=== PATIENT | male | born 1960 | race Caucasian/White ===

== ENCOUNTER 2016-09-19 23:23 | Emergency (ER) | payer OTHER ==
[~2016-09-19] VITALS: Ht 180.3 cm; Wt 130.0 kg
[~2016-09-19 23:23] MED LIST: Z.0.NO CURRENT MEDS
[2016-09-19 23:36] VITALS: BP 138/75; PULSE 68; RESP 18; TEMP 97.5; O2SAT 95
[2016-09-20] MEDS ORDERED: CIAL5TAB PO (00:11)
[2016-09-20] MEDS ORDERED: KETOROLAC TROMETHAMINE 60 MG/2 ML (IM) VIAL IM ONE (01:15)
--- NOTE | 2016-09-20 01:50 | RADRPT ---
EXAM DATE/TIME: 09/20/2016 01:12 [place] COMPARISON: No previous studies available for comparison. INDICATIONS : Right elbow pain. MEDICAL HISTORY : Right elbow fracture. SURGICAL HISTORY : Right elbow surgery. ENCOUNTER: Initial ACUITY: 2 days PAIN SCORE: 3/10 LOCATION: Right elbow. FINDINGS: Multiple view examination of the right elbow demonstrates soft tissue swelling posteriorly. Degenerat nicole changes are seen. No fracture or effusion. Calcified density posteriorly.. The osseous structure s are in normal alignment. Bony mineralization is normal. CONCLUSION: 1. Degenerative changes without acute fracture. 2. Calcified density in the posterior soft tissues likely related to old injury. Eric. Placido Tate MD on September 20, 2016 at 1:48 Board Certified Radiologist. This report was verified electronically.
[2016-09-20] MEDS ORDERED: IBUP800T23 PO (01:58)
[2016-09-20] MEDS ORDERED: HYDR-3533 PO (01:58)
--- NOTE | 2016-09-20 02:03 | PD ---
HPI Chief Complaint: Musculoskeletal Complaint Time Seen by Provider: 01:07 Travel History International Travel<30 days: Yes Contact w/Intl Traveler<30days: [place] Country Traveled to: [place] Traveled to known affect area: No History of Present Illness HPI 56-year-old male presents to the emergency department by private transportation for complaint of right elbow pain. Patient is unaware injury but has been lifting weights and was carrying heavy luggage. 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 Patient reports extensive injury to the elbow approximate 4 years ago requiring surgical repair and has done well at the site until the last 2 days and this evening was impairing his ability to sleep comfortably some presents now for further evaluation. Patient rates his pain as 7/10 in intensity. Patient is not diabetic. PFSH Past Medical History Narrative Medical Elbow surgery; nursing notes reviewed Medical History: Denies Significant Hx Cancer: No Diabetes: No Diminished Hearing: No Glaucoma: No Hepatitis: No Hiatal Hernia: No Hypertension: No Thyroid Disease: No Tetanus Vaccination: Unknown Influenza Vaccination: No Past Surgical History Pacemaker: No Social History Alcohol Use: Yes ("OCCASIONALLY") Tobacco Use: No Substance Use: No Allergies-Medications (Allergen,Severity, Reaction): Coded Allergies: No Known Allergies (Verified , 09/20/16) Reported Meds & Prescriptions Reported Meds & Active Scripts Active Reported Cialis (Tadalafil) 5 Mg Tab 5 Mg PO DAILY Do not exceed 1 dose/day. Review of Systems Except as stated in HPI: all other systems reviewed are Neg Physical Exam Narrative GENERAL: Well-developed well-nourished male distress no respiratory distress CARDIOVASCULAR: Regular rate and rhythm without murmurs, gallops, or rubs. RESPIRATORY: Breath sounds equal bilaterally. No accessory muscle use. MUSCULOSKELETAL: No cyanosis, or edema. Attention right upper extremity neurovascular tendon intact with brisk capillary refill less than 2 seconds per digit neurovascular tendon intact; attention right elbow mild area of soft tissue swelling overlying the olecranon process without redness or warmth no tense edema patient does have some decreased range of motion on full extension but no antalgic movement intact pronation supination extension and flexion and reactive Data Data Last Documented VS Vital Signs Date Time Temp Pulse Resp B/P Pulse Ox O2 Delivery O2 Flow Rate FiO2 09/19/16 23:36 97.5 68 18 138/75 95 Orders Elbow, Complete (4 Vws) (09/20/16 ) Ketorolac Inj (Toradol Inj) (09/20/16 01:15) MDM Medical Decision Making Medical Screen Exam Complete: Yes Emergency Medical Condition: Yes Medical Record Reviewed: Yes Interpretation(s) Right elbow: FINDINGS: Multiple view examination of the right elbow demonstrates soft tissue swelling posteriorly. Degenerative changes are seen. No fracture or effusion. Calcified density posteriorly.. The osseous structures are in normal alignment. Bony mineralization is normal. CONCLUSION: 1. Degenerative changes without acute fracture. 2. Calcified density in the posterior soft tissues likely related to old injury. Eric. Placido Tate MD on September 20, 2016 at 1:48 Board Certified Radiologist. This report was verified electronically. Differential Diagnosis Sprain strain subluxation stress fracture bursitis tendinitis; unlikely tendon/ muscle rupture or septic arthritis Narrative Course Patient with reproducible tenderness to palpation over the olecranon bursa without redness or warmth mild swelling patient demonstrates intact range of motion although does have some increased pain with full extension of the right upper extremity specifically related to pain overlying the olecranon process. No bony abnormality no deformity distally extremity is neurovascular tendon intact. At this time imaging of the right elbow will be obtained and patient given injection of Toradol. Imaging shows chronic changes and some soft tissue swelling of the olecranon consistent with olecranon bursitis; patient has received injection of Toradol and will be given prescription for weight-based ibuprofen and Lortab with encouragement to follow up with his primary care provider and orthopedist. Patient is encouraged to return to the emergency department should he notice redness or warmth at the site or should he develop fever as may require antibiotic or procedural intervention. Diagnosis Primary Impression: Olecranon bursitis, right elbow Referrals: Orthopedist as needed Primary Care Physician call for appointment Patient Instructions: General Instructions Additional Instructions: Apply warm compresses intermittently to right elbow; take medications as prescribed; follow-up with your primary care provider and orthopedist call office to schedule appointment Monitor temperature every 4 hours with thermometer take acetaminophen/Tylenol as needed for fever 100.4F or greater May take weight-based prescription ibuprofen for fever 100.4F or greater or use as needed for pain associated with inflammation Be aware that narcotic pain medication may impair judgment delay reaction time increased risk for fall and cause constipation Return to the emergency department for any concerns or change in condition Med/Other Pt SpecificInfo: Prescription(s) given Scripts Hydrocodone-Acetaminophen (Lortab)5-325 Mg Tab1-2 Tab PO Q6H PRN (PAIN) #7 TAB Ref 0 Prov:Isaura Kan MD 09/20/16 Ibuprofen 800 Mg [id number] Mg PO Q8H PRN (PAIN GREATER THAN 5) #12 TAB Ref 0 Prov:Isaura Kan MD 09/20/16 Disposition: 01 DISCHARGE HOME Condition: Stable Isaura Kan MD Sep 20, 2016 02:03
== END 2016-09-20 02:16 | disposition home or self-care (01) ==
LOC: PHED 23:23
DX: M70.21 Olecranon bursitis, right elbow (principal); Y93.89 Activity, other specified
CPT/HCPCS: 73080; 96372; 99284; J1885